=== PATIENT | female | born 1965 | race Caucasian/White ===

== ENCOUNTER 2021-09-17 19:32 | Emergency (ER) | payer MEDICARE, SELFPAY ==
--- NOTE | ~2021-09-17 | XR_ITS ---
EXAM: XR ankle RT 2V, XR foot RT min 3V HISTORY: pain, no injury . COMPARISON: None available. FINDINGS: Normal mineralization. No fracture or dislocation. No lytic or blastic lesion. Joint space s maintained. Os navicularis. No erosion or periosteal change. Soft tissues within normal limits. IMPRESSION: No acute osseous finding in the right foot or ankle. Reviewed, dictated and finalized at location K. IMPRESSION: No acute osseous finding in the right foot or ankle.
[2021-09-17 19:48] VITALS: BP 144/92; PULSE 93; RESP 18; O2SAT 100
--- NOTE | 2021-09-17 22:19 | ED.LOWEXIN ---
HPI - Extremity Injury (Lower) General Chief Complaint: Extremity Injury, Lower Stated Complaint: Right foot pain/bilateral hand numbness Time Seen by Provider: 09/17/21 21:34 Source: patient Mode of arrival: ambulatory Limitations: no limitations History of Present Illness HPI Narrative: Patient is a 56-year-old female who presents to the ED with report of right ankle and foot pain. Patient reports she was running errands earlier and stepped out of her truck and developed pain in her right ankle and foot. She denied any direct injury, twisting, abnormal movements, falls. She did notice a small area of erythema to her medial heel, but complains of pain more to medial arch and dorsal foot. She reports difficulty walking due to pain. No recent pain or swelling in legs, chest pain, shortness of breath, fever, chills. Patient has not taken anything for pain prior to arrival. Related Data Allergies Allergy/AdvReac Type Severity Reaction Status Date / Time Penicillins Allergy Hives Verified 09/17/21 19:52 Review of Systems Review of Systems: CONSTITUTIONAL: Denies fever, chills. CARDIOVASCULAR: Denies chest pain, BLE edema. RESPIRATORY: Denies cough or dyspnea. SKIN: Reports redness to right medial heel. MUSCULOSKELETAL: Reports pain to right ankle and right foot. Denies pain in lower leg bilaterally. NEUROLOGIC: Denies numbness, tingling, weakness. All systems reviewed & are unremarkable except as noted in HPI and below PMFSH Past Medical History Medical History Hypertension Surgical History Surgical History (Updated 09/17/21 @ 22:19 by Geraldine Vargas PA-C) No pertinent past surgical history Social History Social History (Updated 09/17/21 @ 22:19 by Geraldine Vargas PA-C) Smoking status: Former smoker Exam Narrative: GENERAL: Well appearing, well-nourished, non-toxic, in no acute distress. HEAD: Normocephalic, atraumatic. NECK: Supple. No adenopathy, no masses. RESPIRATORY: Airway patent, respirations nonlabored. Clear to auscultation bilaterally, no rales, rhonchi, wheezing. CARDIOVASCULAR: Regular rate and rhythm without murmurs, rubs, or gallops. Peripheral pulses 2+ and equal bilaterally. MUSCULOSKELETAL: Moves all extremities. Strength/ROM intact without gross deformities. Tenderness to palpation dorsal right foot over area of talus and first metatarsal. Tenderness to palpation over medial right arch and along distribution of veins. No edema in bilateral lower extremities. No calf tenderness. Enlarged, dilated, somewhat tortuous veins on right medial foot along area of arch compared to L foot (L foot does appear to have prominent veins as well, but they do not appear enlarged or tortuous). SKIN: Warm, dry, normal color. No rashes. NEURO: A&O X3. Speech clear. Cranial nerves II-XII grossly intact. Steady gait. No ataxic movements. PSYCHIATRIC: Appropriate mood and affect. Normal interaction. Course Vital Signs Vital signs: Vital Signs Pulse Rate 93 09/17/21 19:48 Respiratory Rate 18 09/17/21 19:48 Blood Pressure 144/92 H 09/17/21 19:48 Pulse Oximetry 100 09/17/21 19:48 Pulse Rate 77 09/17/21 23:39 Respiratory Rate 18 09/17/21 23:39 Blood Pressure 137/85 09/17/21 23:39 Pulse Oximetry 100 09/17/21 23:39 MDM - Extremity Injury (Lower) MDM Narrative Medical decision making narrative: Patient presented to ED with report of pain to her right foot and ankle that began suddenly tonight. No significant injury. Vital signs stable upon arrival. X-ray of right foot and ankle negative for acute osseous abnormality. On exam, patient does have dilated, tender veins along right medial foot over region of arch. These do appear slightly torturous compared to the left foot. My suspicion is for a superficial thrombophlebitis as patient is tender along the distribution of veins. Patient denies any recent pain or swelling in lower legs. N
[2021-09-17] MEDS: KETOROLAC (*BKC) 60 MG/2 ML VIAL IM (23:02)
[2021-09-17 23:39] VITALS: BP 137/85; PULSE 77; RESP 18; O2SAT 100
== END 2021-09-17 23:41 | disposition home or self-care (01) ==
PROVIDERS: Emergency Provider General Practice; PCP Internal Medicine Infectious Disease
DX: M79.671 Pain in right foot (principal); I83.91 Asymptomatic varicose veins of right lower extremity; I10 Essential (primary) hypertension; Z87.891 Personal history of nicotine dependence
CPT/HCPCS: 73600; 73630; 96372; 99283; J1885

== ENCOUNTER 2021-09-18 08:17 | Outpatient (CLI) | payer MEDICARE, SELFPAY ==
--- NOTE | ~2021-09-18 | US_ITS ---
EXAMINATION: US venous doppler LE RT DATE: 09/18/2021 08:56 INDICATION: Right lower limb pain TECHNIQUE: Grayscale ultrasound images without and with compression and Doppler ultrasound images of the right lower extremity veins were obtained. COMPARISON: None. FINDINGS: The visualized portions of right common femoral vein, profunda (deep) femoral vein, femoral vein, pop liteal vein, peroneal trunk, posterior tibial veins, peroneal veins, gastrocnemius vein and greater s aphenous vein outflow are patent. IMPRESSION: 1. No deep venous thrombosis in the right lower limb. Reviewed, dictated and finalized at location A.
== END 2021-09-18 08:18 | disposition home or self-care (01) ==
PROVIDERS: PCP Internal Medicine Infectious Disease; Visit Provider Physician Assistant
DX: M79.671 Pain in right foot (principal)
CPT/HCPCS: 93971

== ENCOUNTER 2024-05-18 11:18 | Outpatient (CLI) | payer MEDICARE, SELFPAY ==
--- NOTE | ~2024-05-18 | XR_ITS ---
3 VIEWS LUMBAR SPINE Ordering provider: Brenton Springer History: . Other spondylosis with radiculopathy, lumbar region . Comparison: None. FINDINGS: VERTEBRAL BODIES: No visible fracture or subluxation. Attempt of sacralization of L5. DISK SPACES: Narrowing of the disc L5-S1. Facet joint disease at the level of L4-L5 and L5-S1. SOFT TISSUES: Normal. IMPRESSION: No acute osseous abnormality lumbar spine. Degenerative disc disease at the level of L5-S1. Reviewed, dictated and finalized at location A. CAB DISPATCHER
--- NOTE | ~2024-05-18 | XR_ITS ---
3 VIEWS THORACIC SPINE Ordering provider: Lucía Jordan History: . Radiculopathy, thoracic region . Comparison: None. FINDINGS: VERTEBRAL BODIES: Normal height and alignment. No visible fracture or subluxation. DISK SPACES: Normal. SOFT TISSUES: Normal. IMPRESSION: No acute osseous abnormality of the thoracic spine. Reviewed, dictated and finalized at location A. UP GIRL
--- NOTE | ~2024-05-18 | XR_ITS ---
XR cervical spine 4-5V Ordering provider: Brenton Springer History: . Spondylosis without myelopathy or radiculopathy, cervicothor . Comparison: None. FINDINGS: VERTEBRAL BODIES: Normal height and alignment. No visible fracture or subluxation. The dens is intact . DISK SPACES: Narrowing of the disc C5-6. Narrowing of the bilateral intervertebral foramen at the lev el of C5-6.. Narrowing of the right intervertebral foramen at the level of C6-7. Multilevel facet javid nt disease. PARASPINOUS SOFT TISSUES: No prevertebral soft tissue swelling. IMPRESSION: No acute osseous abnormality cervical spine. Degenerative disc disease at the level of C5-C6. Reviewed, dictated and finalized at location A. MA SPECIALIST
== END 2024-05-18 11:19 | disposition home or self-care (01) ==
PROVIDERS: PCP Internal Medicine Infectious Disease
DX: M47.26 Other spondylosis with radiculopathy, lumbar region (principal); M47.813 Spondylosis without myelopathy or radiculopathy, cervicothoracic region; M50.322 Other cervical disc degeneration at C5-C6 level; M51.379 Other intervertebral disc degeneration, lumbosacral region without mention of lumbar back pain or lower extremity pain
CPT/HCPCS: 72050; 72072; 72100

== ENCOUNTER 2025-03-08 09:07 | Outpatient (CLI) | payer MEDICARE, SELFPAY ==
--- NOTE | ~2025-03-08 | MR_ITS ---
EXAMINATION: MR knee LT wo con DATE: 03/08/2025 09:43 INDICATION: Left knee pain TECHNIQUE: Magnetic resonance imaging (MRI) of the left knee was performed without intravenous contrast. Sequences included coronal PD-weighted FSE, coronal PD-weighted FS FSE, sagittal T2-weighted FSE, sagittal PD-weighted FS FSE and axial PD weighted fat saturated FSE. COMPARISON: None. FINDINGS: Medial compartment: Longitudinal horizontal tear at the posterior horn and posterior body of the medial meniscus which extends to the contact the articular surface at the free edge at the central posterior horn and more peripherally along the inferior articular surface at the more lateral posterior horn and posterior body. There is partial thickness cartilage loss with mild underlying subarticular edema-like signal change along the medial and posterior medial rim of the medial tibial plateau. Deep chondral fissure without degenerative subchondral changes at the central aspect of the medial tibial plateau. Mild partial-thickness cartilage loss with smooth chondral surface and without degenerative subchondral changes at the anterior weightbearing medial femoral condyle. Lateral compartment: Lateral meniscus is normal. Mild partial-thickness cartilage loss with smooth chondral surface and without degenerative subchondral changes at the posterior weightbearing lateral femoral condyle. Patellofemoral compartment: Deep chondral fissuring with tiny foci of subarticular edema-like signal change at the central aspect of the trochlear groove and at the inferior aspect of the medial trochlea. Chondral swelling and partial-thickness chondral fissure without degenerative subchondral changes at the central aspect of the lateral patellar facet. Ligaments and tendons: Anterior and posterior cruciate ligaments are normal. The medial collateral ligament and fibular collateral ligament complex are normal. Patellar tendon is normal. Minimal tendinopathy at the distal quadriceps tendon. The visualized medial and lateral hamstring tendons as well as the iliotibial band are normal. Fluid: Small left knee joint effusion. No loose osteochondral bodies identified. Moderate sized Aguirre's cyst measuring 4.2 x 1.3 x 1.2 cm. Osseous/other: Bone alignment is normal. No fracture or pathologic marrow replacing process. IMPRESSION: 1. Longitudinal horizontal tear of the posterior body and posterior horn of the medial meniscus. 2. 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 3. Small left knee joint effusion and moderate-sized Aguirre's cyst. Reviewed, dictated and finalized at location A. SCHEDULER IMPRESSION: 1. Longitudinal horizontal tear of the posterior body and posterior horn of the medial meniscus. 2. Mild tricompartmental osteoarthritis with moderate and high-grade chondromal acia in the patellofemoral compartment and moderate grade chondral malacia in t he medial and lateral compartments. 3. Small left knee joint effusion and moderate-sized Aguirre's cyst.
--- OUTSIDE RECORDS SUMMARY | 2025-03-08 10:06 | XMS_ITS | Clinical Summary ---
Author Organization [facility] Address [address] [place] [address] Care Team Providers Care Cook Specialty Name Role Phone Unavailable Primary Care Provider Unavailabl e Source Comments [facility],non-owned Affiliates and Associated Physician Practices is amultiple site organization consisting of ambulatory clinics and hospital sitesin [place], [place], [place] and [place]. This disclosure is being madepursuant to the Care Everywhere program and may not contain all information available regarding this patient. Last updated 18.[facility] Immunizations Immunization Administration Dates Next Due INFLUENZA VACCINE, QUADR. (F LUZONE; FLULAVAL; FLUARIX; AFLURIA QUADRIVALENT; 6MO+), 0.5 ML (IIV4) 03/04/2017 Social History Tobacco Use Types Packs/Day Years Used Date Smoking Tobacco: Never Assessed Comments Unknown Sex and Gender Information Value Date Recorded Sex Assigned at Not on file Legal Sex Female 2:57 PM CDT Gender Identity Not on file Sexual Orientation Not on file Plan of Treatment Health Maintenance Due Date Last Done Comments COLOGUARD (AGES 45-75) - COL ON CA SCREENING 1963 COLON MONITORING 1963 COLONOSCOPY - COLON CA SCREENING 1963 CT COLONOGRAPHY - COLON CA SCREENING 1963 Colorectal Cancer Screening 1963 FIT - COLON CA SCREENING 1963 FLEX SIG - COLON CA SCREENING 1963 LIPID TESTING 1963 MAMMOGRAM 1963 HIV SCREENING 1978 HEPATITIS C SCREENING 03/03/1981 DTAP/TDAP/TD VACCINES (1 - Tdap) 1982 PNEUMOCOCCAL VACCINE 50+ (1 of 1 - PCV) 2013 ZOSTER VACCINE (1 of 2) 2013 DEPRESSION SCREENING 05/05/2024 COVID-19 VACCINE (2023-2 5 season) 2025 INFLUENZA VACCINE (#1) 2025 03/04/2017 Respiratory Syncytial Virus (RSV) Vaccine Pt: or over 60 yrs (1 - 1-dose 75+ series) 2038 HEPATITIS B VACCINE Aged Out No longe r eligible based on patient's age to complete this topic HIB VACCINE Aged Out No longer eligi ble based on patient's age to complete this topic HPV VACCINE Aged Out No longer eligi ble based on patient's age to complete this topic MENINGOCOCCAL (Group B) VACC INE SHARED DECISION-MAKING Aged Out No longer eligibl e based on patient's age to complete this topic MENINGOCOCCAL GROUPS A/C/Y/W VACCINE Aged Out No longer eligible b ased on patient's age to complete this topic Insurance MEDICARE MEDICARE
== END 2025-03-08 09:08 | disposition home or self-care (01) ==
PROVIDERS: PCP Internal Medicine Infectious Disease; Visit Provider Internal Medicine Infectious Disease
DX: S83.242A Other tear of medial meniscus, current injury, left knee, initial encounter (principal); M17.12 Unilateral primary osteoarthritis, left knee; M22.42 Chondromalacia patellae, left knee; M25.462 Effusion, left knee; M71.22 Synovial cyst of popliteal space [Baker], left knee
CPT/HCPCS: 73721